=== PATIENT | male | born 1945 | race Two or more races ===

== ENCOUNTER 2016-11-15 22:25 | Inpatient (IN) | payer OTHER ==
[~2016-11-15] VITALS: Ht 167.6 cm; Wt 103.1 kg
[2016-11-15] MEDS ORDERED: IV NS 0.9% 1,000 ML BAG IV ONE (22:30)
[2016-11-15] MEDS ORDERED: LORAZEPAM INJ 2 MG/ML VIAL ONE (22:37)
[2016-11-15 22:52] LABS: ABG BASE EXCESS -2.1 mmol/L; ABG OXYGEN SATURATION 93.8 % (92.0-98.5); ABG PCO2 36.8 mmHg (35.0-45.0); ABG PH 7.401 (7.350-7.450); ABG PO2 75.1 mmHg (75.0-100.0); COHb 1.1 % (0.5-1.5); MetHb 0.6 % (0.0-1.5); O2Hb 92.2 % (94.0-97.0); VENT MODE, BG Room Air
[2016-11-15 22:55] LABS: BASOPHILS # (AUTO) 0.1 /CMM (0.0-0.2); BASOPHILS % (AUTO) 1.2 % (0.0-2.0); EOSINOPHILS # (AUTO) 0.2 /CMM (0.0-0.7); EOSINOPHILS % (AUTO) 2.2 % (0.0-6.0); HEMATOCRIT 30 % (39-51); HEMOGLOBIN 10.2 g/dL (13.5-17.5); LYMPHOCYTES # (AUTO) 1.2 /CMM (0.8-4.8); LYMPHOCYTES % (AUTO) 13.5 % (20.0-44.0); MEAN CORPUSCULAR HEMOGLOBIN 34 PG (26.0-33.0); MEAN CORPUSCULAR HGB CONC 34 g/dl (31.0-36.0); MEAN CORPUSCULAR VOLUME 101 fL (80-96); MONOCYTES # (AUTO) 0.5 /CMM (0.1-1.30); MONOCYTES % (AUTO) 5.8 % (2.0-12.0); NEUTROPHILS # (AUTO) 6.7 /CMM (1.8-8.9); NEUTROPHILS % (AUTO) 77.3 % (43.0-81.0); PLATELET COUNT (AUTO) 90 /CMM (150-450); RDW COEFFICIENT OF VARIATION 22.9 (11.5-15.0); RED BLOOD CELL COUNT(AUTO) 2.99 MIL/uL (4.5-6.0); WHITE BLOOD COUNT (AUTO) 8.7 K/uL (4.3-11.0)
[2016-11-15] MEDS ORDERED: IV NS 0.9% 1,000 ML ONE (22:56)
[2016-11-15] MEDS ORDERED: IV SET PRIMARY 1 EA INFUS.SET MC ONE (22:56)
[2016-11-15] MEDS ORDERED: LORAZEPAM INJ 2 MG/ML VIAL IV ONE ×2 (23:00)
[2016-11-15] MEDS ORDERED: MAGN400O4 PO (23:08)
[2016-11-15] MEDS ORDERED: LACT10SO PO (23:08)
[2016-11-15] MEDS ORDERED: ARGI1POW13 PO (23:08)
[2016-11-15] MEDS ORDERED: ALBU1.257 IH (23:08)
[2016-11-15] MEDS ORDERED: MULT-213 PO (23:08)
[2016-11-15] MEDS ORDERED: SPIR25TA PO (23:08)
[2016-11-15] MEDS ORDERED: ZINC220T PO (23:08)
[2016-11-15] MEDS ORDERED: CRAN3875 PO (23:08)
[2016-11-15] MEDS ORDERED: THIA100T13 PO (23:08)
[2016-11-15] MEDS ORDERED: PROP10TA10 PO (23:08)
[2016-11-15] MEDS ORDERED: NA P133E RC (23:08)
[2016-11-15] MEDS ORDERED: INSU3INS6 SQ (23:08)
[2016-11-15] MEDS ORDERED: TAMS-12 PO (23:08)
[2016-11-15] MEDS ORDERED: PANT40TA2 PO (23:08)
[2016-11-15] MEDS ORDERED: FURO-144 PO (23:08)
[2016-11-15] MEDS ORDERED: ASCO500T9 PO (23:08)
[2016-11-15] MEDS ORDERED: FOLI1TAB16 PO (23:08)
[2016-11-15] MEDS ORDERED: ALLO300T47 PO (23:08)
[2016-11-15] MEDS ORDERED: BISA10SU8 RC (23:08)
[2016-11-15] MEDS ORDERED: IPRA3AMP IH (23:08)
[2016-11-15 23:13] LABS: INR 1.64 (0.87-1.13); PROTHROMBIN TIME 18.1 SECS (9.5-12.7)
[2016-11-15 23:20] LABS: TROPONIN I < 0.017 ng/mL (0.00-0.056)
[2016-11-15 23:24] LABS: SERUM AMMONIA 306 umol/L (11-32)
[2016-11-15 23:26] LABS: ALANINE AMINOTRANSFERASE 63 U/L (12-78); ALBUMIN 2.5 g/dL (3.4-5.0); ALKALINE PHOSPHATASE 267 U/L (46-116); ASPARTATE AMINOTRANSFERASE 97 U/L (15-37); BILIRUBIN,DIRECT 4.2 mg/dL (0.0-0.2); BILIRUBIN,TOTAL 6.6 mg/dL (0.2-1.0); CALCIUM, SERUM 8.4 mg/dL (8.5-10.1); CARBON DIOXIDE 21 mmol/L (21-32); CHLORIDE 104 mmol/L (98-107); CREATININE 2.1 mg/dL (0.6-1.3); GLUCOSE 182 mg/dL (74-106); POTASSIUM 6.2 mmol/L (3.5-5.1); SALICYLATE < 0.2 mg/dL (2.8-20.0); SODIUM SERUM 136 mmol/L (136-145); THYROID STIMULATING HORMONE 15.139 uIU/mL (0.358-3.74); TOTAL PROTEIN, SERUM 8.6 g/dL (6.4-8.2); UREA NITROGEN, BLOOD 44 mg/dL (7-18)
[2016-11-15 23:27] LABS: ACETAMINOPHEN 0 ug/ml (10-30); ALCOHOL, BLOOD < 3 mg/dL (0-0)
[2016-11-15 23:30] LABS: EOSINOPHILS % (MANUAL) 2 % (0-4); LYMPHOCYTES % (MANUAL) 15 % (16-48); MONOCYTES % (MANUAL) 4 % (0-11.0); NEUTROPHILS % (MANUAL) 79 (42-76)
[2016-11-15] MEDS ORDERED: LACTULOSE 10 G/15 ML UDC (PYXIS) GT ONE (23:30)
[2016-11-15] MEDS ORDERED: VANCOMYCIN 1 GM in IV D5W 250 ML IV ONE (23:30)
[2016-11-15] MEDS ORDERED: PIPERACILLIN /TAZOBACTAM 3.375 G in IV D5W 50 ML IV ONE (23:30)
[2016-11-15] MEDS ORDERED: METRONIDAZOLE 500MG/ NS 100ML 100 ML IV ONE (23:30)
[2016-11-15] MEDS ORDERED: NEOMYCIN SULFATE (500MG) 500 MG TABLET NG ONE (23:30)
[2016-11-15] MEDS ORDERED: LEVOFLOXACIN 750 MG /D5W 150ML 150 ML IV ONE (23:30)
[2016-11-15 23:39] LABS: APPEARANCE,URINE CLEAR (CLEAR); BILIRUBIN,URINE 2+ (NEGATIVE); BLOOD, URINE TRACE-INTA Ery/uL (NEGATIVE); COLOR,URINE AMBER (YELLOW); KETONES,URINE TRACE (NEGATIVE); LEUKOCYTE ESTERASE ,URINE NEGATIVE (NEGATIVE); NITRITE, URINE NEGATIVE (NEGATIVE); PROTEIN,URINE TRACE mg/dl (NEGATIVE); UGLUCOSE NEGATIVE (NEGATIVE)
[2016-11-15 23:44] LABS: BACTERIA,URINE None seen /HPF (None Seen); RBC,URINE 0-2 /HPF (0-2); WBC,URINE 0-2 /HPF (0-3)
[2016-11-15 23:45] LABS: SQUAMOUS EPITHELIAL CELL,UR Rare /HPF (None Seen)
[2016-11-15] MEDS ORDERED: PIPERACILLIN /TAZOBACTAM 3.375 G VIAL IV ONE (23:59)
[2016-11-15] MEDS ORDERED: IV SET PRIMARY PUMP SET 1 EA INFUS.SET MC ONE (23:59)
[2016-11-16] VITALS (62 sets, daily range): BP systolic 79–188; BP diastolic 34–102
[2016-11-16] MEDS ORDERED: IV NS 0.9% 1,000 ML BAG IV ONE
[2016-11-16] MEDS ORDERED: LACTULOSE 10 G/15 ML UDC (PYXIS) ONE (00:07)
[2016-11-16] MEDS ORDERED: VANCOMYCIN 1 GM VIAL ONE ×2 (00:16→05:28)
[2016-11-16] MEDS ORDERED: NEOMYCIN SULFATE (500MG) 500 MG TABLET ONE (00:21)
[2016-11-16] MEDS ORDERED: ZINC SULFATE 220 MG CAPSULE ONE (00:29)
[2016-11-16] MEDS ORDERED: ZINC SULFATE 220 MG CAPSULE PO SCH (00:30)
[2016-11-16] MEDS ORDERED: FOLIC ACID 1 MG TABLET ONE ×2 (00:32)
[2016-11-16] MEDS ORDERED: IV NS 0.9% 1,000 ML ONE (00:37)
[2016-11-16] MEDS ORDERED: FOLIC ACID 1 MG TABLET PO ONE (01:00)
[2016-11-16] MEDS ORDERED: METRONIDAZOLE 500MG/ NS 100ML 100 ML IV ONE (01:17)
[2016-11-16 01:38] LABS: CALCIUM, SERUM 8.4 mg/dL (8.5-10.1)
[2016-11-16 01:42] LABS: POTASSIUM 6.2 mmol/L (3.5-5.1)
[2016-11-16] MEDS: CYANOCOBALAMIN 1,000 MCG/ML VIAL IM SCH ×2 (01:51→06:15)
[2016-11-16 03:17] LABS: ABG BASE EXCESS -2.2 mmol/L; ABG OXYGEN SATURATION 96.1 % (92.0-98.5); ABG PCO2 36.3 mmHg (35.0-45.0); ABG PH 7.403 (7.350-7.450); AaDO2 66.8 mmHg; COHb 1.9 % (0.5-1.5); MetHb 0.6 % (0.0-1.5); O2Hb 93.7 % (94.0-97.0); SITE, ABG Right Radial; VENT MODE, BG 2L NC
[2016-11-16] MEDS ORDERED: NOREPINEPHRINE 8 MG in IV D5W 500 ML IV PRN (05:00)
[2016-11-16] MEDS ORDERED: VANCOMYCIN 1 GM in IV D5W 250 ML IV ONE (05:00)
[2016-11-16] MEDS ORDERED: MORPHINE SULFATE INJ 2 MG/ML DISP.SYRIN IV PRN (05:00)
[2016-11-16] MEDS ORDERED: PHYTONADIONE INJ 10 MG in IV D5W 50 ML IV ONE (05:00)
[2016-11-16 05:02] LABS: ABG BASE EXCESS -1.3 mmol/L; ABG PCO2 39.8 mmHg (35.0-45.0); ABG PO2 102.9 mmHg (75.0-100.0); AaDO2 136.5 mmHg; COHb 2.4 % (0.5-1.5); MetHb 0.8 % (0.0-1.5); O2Hb 93.9 % (94.0-97.0); SITE, ABG Right Radial; VENT MODE, BG S/T 12 15/5 40%
[2016-11-16] MEDS ORDERED: LEVOFLOXACIN 750 MG /D5W 150ML 150 ML IV ONE (05:21)
[2016-11-16 05:25] LABS: BASOPHILS # (AUTO) 0.1 /CMM (0.0-0.2); BASOPHILS % (AUTO) 0.7 % (0.0-2.0); EOSINOPHILS # (AUTO) 0.1 /CMM (0.0-0.7); EOSINOPHILS % (AUTO) 1.4 % (0.0-6.0); HEMATOCRIT 26 % (39-51); LYMPHOCYTES # (AUTO) 0.7 /CMM (0.8-4.8); LYMPHOCYTES % (AUTO) 8.6 % (20.0-44.0); MEAN CORPUSCULAR HEMOGLOBIN 35 PG (26.0-33.0); MEAN CORPUSCULAR HGB CONC 35 g/dl (31.0-36.0); MEAN CORPUSCULAR VOLUME 100 fL (80-96); MONOCYTES # (AUTO) 0.6 /CMM (0.1-1.30); MONOCYTES % (AUTO) 7.6 % (2.0-12.0); NEUTROPHILS # (AUTO) 6.5 /CMM (1.8-8.9); NEUTROPHILS % (AUTO) 81.7 % (43.0-81.0); PLATELET COUNT (AUTO) 66 /CMM (150-450); RDW COEFFICIENT OF VARIATION 22.1 (11.5-15.0); RED BLOOD CELL COUNT(AUTO) 2.61 MIL/uL (4.5-6.0); WHITE BLOOD COUNT (AUTO) 7.9 K/uL (4.3-11.0)
[2016-11-16] MEDS ORDERED: IV SET PRIMARY PUMP SET 1 EA INFUS.SET MC ONE ×3 (05:27→20:15)
[2016-11-16] MEDS ORDERED: IV D5/ 0.9% NACL 1,000 ML IV ONE (05:27)
[2016-11-16] MEDS ORDERED: SECONDARY IV SET 1 EA INFUS.SET MC ONE (05:28)
[2016-11-16] MEDS ORDERED: IV D5W 250 ML IV ONE (05:29)
[2016-11-16] MEDS ORDERED: IV D5W 100 ML IV ONE (05:29)
[2016-11-16] MEDS ORDERED: PIPERACILLIN /TAZOBACTAM 2.25 G VIAL IV ONE (05:29)
[2016-11-16] MEDS ORDERED: PHYTONADIONE INJ 10 MG/1 ML AMPUL ONE (05:30)
[2016-11-16] MEDS: IV D5/ 0.9% NACL 1,000 ML IV PRN ×2 (05:41→16:09)
[2016-11-16 05:49] LABS: ALBUMIN 2.1 g/dL (3.4-5.0); BILIRUBIN,TOTAL 7.6 mg/dL (0.2-1.0); CALCIUM, SERUM 7.7 mg/dL (8.5-10.1); EOSINOPHILS % (MANUAL) 1 % (0-4); LYMPHOCYTES % (MANUAL) 12 % (16-48); MAGNESIUM 1.9 mg/dL (1.8-2.4); MONOCYTES % (MANUAL) 6 % (0-11.0); NEUTROPHILS % (MANUAL) 81 (42-76); PHOSPHORUS 3.4 mg/dL (2.5-4.9); TOTAL PROTEIN, SERUM 7.5 g/dL (6.4-8.2)
[2016-11-16 05:54] LABS: POTASSIUM 6.2 mmol/L (3.5-5.1)
[2016-11-16] MEDS ORDERED: PANTOPRAZOLE 40 MG VIAL ONE (05:58)
[2016-11-16] MEDS ORDERED: PIPERACILLIN /TAZOBACTAM 2.25 G in IV D5W 50 ML IV SCH (06:00)
[2016-11-16] MEDS ORDERED: INSULIN REGULAR, HUMAN 100 UNIT/ML 3 ML VIAL IV ONE (06:00)
[2016-11-16] MEDS ORDERED: DEXTROSE 50%-WATER 50 ML DISP.SYRIN IVP ONE (06:00)
[2016-11-16] MEDS: PANTOPRAZOLE 40 MG VIAL IV SCH ×2 (06:02→17:23)
[2016-11-16] MEDS ORDERED: DEXTROSE 50%-WATER 50 ML DISP.SYRIN ONE (06:07)
[2016-11-16] MEDS ORDERED: CYANOCOBALAMIN 1,000 MCG/ML VIAL ONE (06:07)
[2016-11-16] MEDS ORDERED: ETOMIDATE 2 MG/ML VIAL IV ONE (07:00)
[2016-11-16] MEDS ORDERED: ROCURONIUM BROMIDE 50 MG/5 ML IV ONE (07:00)
[2016-11-16] MEDS ORDERED: FEE PK DOSING 1 MIN EA MC ONE (07:25)
[2016-11-16] MEDS ORDERED: LACTULOSE UDC 200 G in SODIUM CHLORIDE IRRIG SOLUTION 400 ML IR SCH (09:00)
[2016-11-16] MEDS: NYSTATIN CREAM 15 GM TUBE TP SCH ×2 (10:16→17:25)
[2016-11-16 10:32] LABS: ABG PCO2 35.1 mmHg (35.0-45.0); PEEP,BG 5 cm H2O; SITE, ABG Right Radial
[2016-11-16 11:12] LABS: ABG BASE EXCESS -1.9 mmol/L; ABG OXYGEN SATURATION 97.8 % (92.0-98.5); ABG PO2 112.1 mmHg (75.0-100.0); AaDO2 204.9 mmHg; COHb 1.5 % (0.5-1.5); MetHb 0.7 % (0.0-1.5); O2Hb 95.6 % (94.0-97.0); VT, ABG 550 mL
[2016-11-16 12:14] LABS: CALCIUM, SERUM 7.6 mg/dL (8.5-10.1); POTASSIUM 5.3 mmol/L (3.5-5.1)
[2016-11-16] MEDS: PROPOFOL 100 ML IV PRN ×2 (13:20→17:40)
[2016-11-16] MEDS ORDERED: LACTULOSE 10 G/15 ML UDC (PYXIS) PO PRN (13:30)
[2016-11-16] MEDS: PIPERACILLIN /TAZOBACTAM 3.375 G in IV D5W 50 ML IV SCH ×2 (14:17→17:23)
[2016-11-16] MEDS: LACTULOSE 10 G/15 ML UDC (PYXIS) PO SCH (17:23)
[2016-11-16] MEDS: NOREPINEPHRINE 8 MG in IV D5W 500 ML IV PRN (20:20)
[2016-11-17] VITALS (98 sets, daily range): BP systolic 85–132; BP diastolic 39–70
[2016-11-17] MEDS: LACTULOSE 10 G/15 ML UDC (PYXIS) PO SCH ×5 (00:05→23:16)
[2016-11-17] MEDS: PIPERACILLIN /TAZOBACTAM 3.375 G in IV D5W 50 ML IV SCH ×5 (00:05→23:16)
[2016-11-17] MEDS: IV D5/ 0.9% NACL 1,000 ML IV PRN (02:50)
[2016-11-17] MEDS: PROPOFOL 100 ML IV PRN ×3 (03:35→19:07)
[2016-11-17 04:38] LABS: BASOPHILS % (AUTO) 0.7 % (0.0-2.0); EOSINOPHILS # (AUTO) 0.2 /CMM (0.0-0.7); EOSINOPHILS % (AUTO) 3.4 % (0.0-6.0); HEMATOCRIT 24 % (39-51); HEMOGLOBIN 8.3 g/dL (13.5-17.5); LYMPHOCYTES # (AUTO) 0.9 /CMM (0.8-4.8); LYMPHOCYTES % (AUTO) 14.4 % (20.0-44.0); MEAN CORPUSCULAR HEMOGLOBIN 35 PG (26.0-33.0); MEAN CORPUSCULAR HGB CONC 35 g/dl (31.0-36.0); MEAN CORPUSCULAR VOLUME 101 fL (80-96); MONOCYTES # (AUTO) 0.6 /CMM (0.1-1.30); MONOCYTES % (AUTO) 9.9 % (2.0-12.0); NEUTROPHILS # (AUTO) 4.7 /CMM (1.8-8.9); NEUTROPHILS % (AUTO) 71.6 % (43.0-81.0); PLATELET COUNT (AUTO) 71 /CMM (150-450); RDW COEFFICIENT OF VARIATION 23.9 (11.5-15.0); RED BLOOD CELL COUNT(AUTO) 2.38 MIL/uL (4.5-6.0); WHITE BLOOD COUNT (AUTO) 6.5 K/uL (4.3-11.0)
[2016-11-17 05:04] LABS: CALCIUM, SERUM 7.6 mg/dL (8.5-10.1); CREATININE 1.9 mg/dL (0.6-1.3); MAGNESIUM 1.9 mg/dL (1.8-2.4); POTASSIUM 5.4 mmol/L (3.5-5.1)
[2016-11-17 05:38] LABS: EOSINOPHILS % (MANUAL) 5 % (0-4); LYMPHOCYTES % (MANUAL) 8 % (16-48); MONOCYTES % (MANUAL) 13 % (0-11.0); NEUTROPHILS % (MANUAL) 74 (42-76)
[2016-11-17] MEDS: PANTOPRAZOLE 40 MG VIAL IV SCH ×2 (05:40→16:55)
[2016-11-17] MEDS ORDERED: VANCOMYCIN 1 GM in IV D5W 250 ML IV SCH (06:00)
[2016-11-17 08:28] LABS: ABG BASE EXCESS -2.5 mmol/L; ABG PCO2 29.3 mmHg (35.0-45.0); ABG PH 7.467 (7.350-7.450); ABG PO2 126.3 mmHg (75.0-100.0); AaDO2 125.2 mmHg; COHb 1.2 % (0.5-1.5); MetHb 1.2 % (0.0-1.5); O2Hb 95.6 % (94.0-97.0); SITE, ABG Right Radial
[2016-11-17] MEDS: FUROSEMIDE 40 MG/4 ML VIAL IV SCH ×2 (09:06→11:04)
[2016-11-17] MEDS: NYSTATIN CREAM 15 GM TUBE TP SCH ×2 (09:08→16:56)
[2016-11-17] MEDS ORDERED: SECONDARY IV SET 1 EA INFUS.SET MC ONE (11:05)
[2016-11-17] MEDS ORDERED: IV SET PRIMARY PUMP SET 1 EA INFUS.SET MC ONE (13:14)
[2016-11-17] MEDS: NOREPINEPHRINE 8 MG in IV D5W 500 ML IV PRN (18:26)
[2016-11-18] VITALS (77 sets, daily range): BP systolic 88–160; BP diastolic 38–88
[2016-11-18] MEDS: VANCOMYCIN 1 GM in IV D5W 250 ML IV SCH ×2 (00:18→17:26)
[2016-11-18] MEDS ORDERED: IV SET PRIMARY PUMP SET 1 EA INFUS.SET MC ONE (02:22)
[2016-11-18] MEDS: PROPOFOL 100 ML IV PRN ×2 (03:11→06:24)
[2016-11-18 04:46] LABS: BASOPHILS % (AUTO) 0.3 % (0.0-2.0); EOSINOPHILS # (AUTO) 0.4 /CMM (0.0-0.7); EOSINOPHILS % (AUTO) 4.6 % (0.0-6.0); HEMATOCRIT 25 % (39-51); HEMOGLOBIN 8.5 g/dL (13.5-17.5); LYMPHOCYTES # (AUTO) 1.1 /CMM (0.8-4.8); LYMPHOCYTES % (AUTO) 12.5 % (20.0-44.0); MEAN CORPUSCULAR HEMOGLOBIN 35 PG (26.0-33.0); MEAN CORPUSCULAR HGB CONC 35 g/dl (31.0-36.0); MEAN CORPUSCULAR VOLUME 100 fL (80-96); MONOCYTES # (AUTO) 0.8 /CMM (0.1-1.30); MONOCYTES % (AUTO) 8.9 % (2.0-12.0); NEUTROPHILS # (AUTO) 6.4 /CMM (1.8-8.9); NEUTROPHILS % (AUTO) 73.7 % (43.0-81.0); PLATELET COUNT (AUTO) 81 /CMM (150-450); RDW COEFFICIENT OF VARIATION 23.5 (11.5-15.0); RED BLOOD CELL COUNT(AUTO) 2.44 MIL/uL (4.5-6.0); WHITE BLOOD COUNT (AUTO) 8.7 K/uL (4.3-11.0)
[2016-11-18 04:59] LABS: CALCIUM, SERUM 7.8 mg/dL (8.5-10.1); CREATININE 1.9 mg/dL (0.6-1.3); MAGNESIUM 1.6 mg/dL (1.8-2.4); PHOSPHORUS 3.7 mg/dL (2.5-4.9); POTASSIUM 4.3 mmol/L (3.5-5.1)
[2016-11-18] MEDS: PIPERACILLIN /TAZOBACTAM 3.375 G in IV D5W 50 ML IV SCH ×3 (05:02→17:26)
[2016-11-18] MEDS: LACTULOSE 10 G/15 ML UDC (PYXIS) PO SCH ×3 (05:02→17:24)
[2016-11-18] MEDS: PANTOPRAZOLE 40 MG VIAL IV SCH ×2 (05:02→17:23)
[2016-11-18 05:49] LABS: EOSINOPHILS % (MANUAL) 7 % (0-4); LYMPHOCYTES % (MANUAL) 15 % (16-48); MONOCYTES % (MANUAL) 5 % (0-11.0); NEUTROPHILS % (MANUAL) 73 (42-76)
[2016-11-18] MEDS: NOREPINEPHRINE 8 MG in IV D5W 500 ML IV PRN ×2 (08:54→18:32)
[2016-11-18] MEDS: NYSTATIN CREAM 15 GM TUBE TP SCH ×2 (09:00→17:00)
[2016-11-18] MEDS ORDERED: DC PROPOFOL WHEN EXTUBATED XX PRN (11:00)
[2016-11-18] MEDS ORDERED: Magnesium 1GM/D5W 100ML PREMIX 100 ML IV SCH (13:00)
[2016-11-18 15:27] LABS: ABG BASE EXCESS 0.8 mmol/L; ABG OXYGEN SATURATION 97.2 % (92.0-98.5); ABG PCO2 37.6 mmHg (35.0-45.0); COHb 1.6 % (0.5-1.5); O2Hb 94.7 % (94.0-97.0); PEEP,BG 5 cm H2O; VT, ABG 550 mL
[2016-11-18] MEDS ORDERED: MUPIROCIN OINT 2% 22 GM TUBE SCH (21:00)
[2016-11-18] MEDS: MUPIROCIN OINT 2% 22 GM TUBE SCH (21:26)
[2016-11-19] VITALS (41 sets, daily range): BP systolic 89–120; BP diastolic 38–70
[2016-11-19] MEDS: PIPERACILLIN /TAZOBACTAM 3.375 G in IV D5W 50 ML IV SCH ×5 (00:10→23:05)
[2016-11-19] MEDS ORDERED: IV NS 0.9% 250 ML IV ONE ×2 (03:52→14:35)
[2016-11-19] MEDS: IV NS 0.9% 250 ML IV PRN (03:59)
[2016-11-19 05:04] LABS: CALCIUM, SERUM 7.8 mg/dL (8.5-10.1); CREATININE 1.7 mg/dL (0.6-1.3); MAGNESIUM 1.9 mg/dL (1.8-2.4); POTASSIUM 4.6 mmol/L (3.5-5.1)
[2016-11-19] MEDS: PANTOPRAZOLE 40 MG VIAL IV SCH ×2 (05:36→17:22)
[2016-11-19 07:50] LABS: BASOPHILS % (AUTO) 0.3 % (0.0-2.0); EOSINOPHILS # (AUTO) 0.3 /CMM (0.0-0.7); EOSINOPHILS % (AUTO) 4.2 % (0.0-6.0); HEMATOCRIT 23 % (39-51); HEMOGLOBIN 7.8 g/dL (13.5-17.5); LYMPHOCYTES # (AUTO) 0.8 /CMM (0.8-4.8); LYMPHOCYTES % (AUTO) 11.4 % (20.0-44.0); MEAN CORPUSCULAR HEMOGLOBIN 35 PG (26.0-33.0); MEAN CORPUSCULAR HGB CONC 34 g/dl (31.0-36.0); MEAN CORPUSCULAR VOLUME 102 fL (80-96); MONOCYTES # (AUTO) 0.5 /CMM (0.1-1.30); MONOCYTES % (AUTO) 7.2 % (2.0-12.0); NEUTROPHILS # (AUTO) 5.6 /CMM (1.8-8.9); NEUTROPHILS % (AUTO) 76.9 % (43.0-81.0); PLATELET COUNT (AUTO) 58 /CMM (150-450); RDW COEFFICIENT OF VARIATION 23.6 (11.5-15.0); RED BLOOD CELL COUNT(AUTO) 2.24 MIL/uL (4.5-6.0); WHITE BLOOD COUNT (AUTO) 7.3 K/uL (4.3-11.0)
[2016-11-19 09:05] LABS: EOSINOPHILS % (MANUAL) 2 % (0-4); LYMPHOCYTES % (MANUAL) 8 % (16-48); MONOCYTES % (MANUAL) 7 % (0-11.0); NEUTROPHILS % (MANUAL) 83 (42-76)
[2016-11-19] MEDS: NYSTATIN CREAM 15 GM TUBE TP SCH ×2 (09:13→17:23)
[2016-11-19] MEDS: MUPIROCIN OINT 2% 22 GM TUBE SCH ×2 (09:13→21:01)
[2016-11-19] MEDS: LACTULOSE 10 G/15 ML UDC (PYXIS) PO SCH ×2 (09:14→17:22)
[2016-11-19] MEDS: VANCOMYCIN 1 GM in IV D5W 250 ML IV SCH (12:34)
[2016-11-19] MEDS ORDERED: BLOOD IV SET 1 EA INFUS.SET MC ONE (14:35)
[2016-11-20] VITALS (7 sets, daily range): BP systolic 105–118; BP diastolic 46–52
[2016-11-20] MEDS: PANTOPRAZOLE 40 MG VIAL IV SCH ×2 (04:08→17:46)
[2016-11-20] MEDS ORDERED: IV SET PRIMARY PUMP SET 1 EA INFUS.SET MC ONE (04:44)
[2016-11-20] MEDS ORDERED: SECONDARY IV SET 1 EA INFUS.SET MC ONE (04:45)
[2016-11-20] MEDS: VANCOMYCIN 1 GM in IV D5W 250 ML IV SCH (05:00)
[2016-11-20] MEDS: PIPERACILLIN /TAZOBACTAM 3.375 G in IV D5W 50 ML IV SCH ×3 (06:24→17:46)
[2016-11-20 06:37] LABS: BASOPHILS % (AUTO) 0.2 % (0.0-2.0); EOSINOPHILS # (AUTO) 0.2 /CMM (0.0-0.7); EOSINOPHILS % (AUTO) 3.6 % (0.0-6.0); HEMATOCRIT 25 % (39-51); HEMOGLOBIN 8.4 g/dL (13.5-17.5); LYMPHOCYTES # (AUTO) 0.5 /CMM (0.8-4.8); LYMPHOCYTES % (AUTO) 11.4 % (20.0-44.0); MEAN CORPUSCULAR HEMOGLOBIN 34 PG (26.0-33.0); MEAN CORPUSCULAR HGB CONC 34 g/dl (31.0-36.0); MEAN CORPUSCULAR VOLUME 101 fL (80-96); MONOCYTES # (AUTO) 0.3 /CMM (0.1-1.30); MONOCYTES % (AUTO) 5.7 % (2.0-12.0); NEUTROPHILS # (AUTO) 3.6 /CMM (1.8-8.9); NEUTROPHILS % (AUTO) 79.1 % (43.0-81.0); PLATELET COUNT (AUTO) 51 /CMM (150-450); RDW COEFFICIENT OF VARIATION 23.4 (11.5-15.0); RED BLOOD CELL COUNT(AUTO) 2.46 MIL/uL (4.5-6.0); WHITE BLOOD COUNT (AUTO) 4.5 K/uL (4.3-11.0)
[2016-11-20 06:51] LABS: CALCIUM, SERUM 8.2 mg/dL (8.5-10.1); CREATININE 1.5 mg/dL (0.6-1.3); PHOSPHORUS 3.6 mg/dL (2.5-4.9); POTASSIUM 4.9 mmol/L (3.5-5.1)
[2016-11-20] MEDS ORDERED: IV NS 0.9% 1,000 ML IV PRN (07:35)
[2016-11-20 08:33] LABS: BAND % (MANUAL) 1 % (0.0-5.0); EOSINOPHILS % (MANUAL) 1 % (0-4); LYMPHOCYTES % (MANUAL) 12 % (16-48); MONOCYTES % (MANUAL) 4 % (0-11.0); NEUTROPHILS % (MANUAL) 82 (42-76)
[2016-11-20] MEDS: LACTULOSE 10 G/15 ML UDC (PYXIS) PO SCH ×2 (08:59→17:46)
[2016-11-20] MEDS: NYSTATIN CREAM 15 GM TUBE TP SCH ×2 (09:01→17:47)
[2016-11-20] MEDS: MUPIROCIN OINT 2% 22 GM TUBE SCH ×2 (09:01→20:49)
[2016-11-20] MEDS: IV NS 0.9% 250 ML IV PRN (13:31)
[2016-11-20] MEDS: HYDROGEL DRESSING 90 GM TUBE TP SCH (20:48)
[2016-11-21] MEDS: PIPERACILLIN /TAZOBACTAM 3.375 G in IV D5W 50 ML IV SCH ×4 (00:27→18:35)
[2016-11-21] MEDS: VANCOMYCIN 1 GM in IV D5W 250 ML IV SCH (01:17)
[2016-11-21] MEDS: PANTOPRAZOLE 40 MG VIAL IV SCH ×2 (05:08→18:36)
[2016-11-21 08:00] VITALS: BP 113/45
[2016-11-21] MEDS: Z GUARD REMEDY 2 OZ OINT TP PRN (08:19)
[2016-11-21] MEDS: FUROSEMIDE 40 MG/4 ML VIAL IV SCH ×2 (08:20→12:32)
[2016-11-21] MEDS: LACTULOSE 10 G/15 ML UDC (PYXIS) PO SCH ×2 (08:20→18:35)
[2016-11-21] MEDS: NYSTATIN CREAM 15 GM TUBE TP SCH ×2 (08:20→17:00)
[2016-11-21] MEDS: MUPIROCIN OINT 2% 22 GM TUBE SCH ×2 (08:21→21:11)
[2016-11-21] MEDS: HYDROGEL DRESSING 90 GM TUBE TP SCH ×2 (08:21→21:11)
[2016-11-21 08:46] LABS: CALCIUM, SERUM 8.3 mg/dL (8.5-10.1); CREATININE 1.4 mg/dL (0.6-1.3); POTASSIUM 4.9 mmol/L (3.5-5.1)
[2016-11-21 16:00] VITALS: BP 122/56
[2016-11-21 20:00] VITALS: BP 116/58
[2016-11-22] MEDS: PIPERACILLIN /TAZOBACTAM 3.375 G in IV D5W 50 ML IV SCH ×2 (00:07→05:20)
[2016-11-22] MEDS: PANTOPRAZOLE 40 MG VIAL IV SCH ×2 (05:20→16:27)
[2016-11-22 07:00] LABS: CREATININE 1.4 mg/dL (0.6-1.3); POTASSIUM 5.6 mmol/L (3.5-5.1)
[2016-11-22 08:00] VITALS: BP 125/64
[2016-11-22] MEDS: LACTULOSE 10 G/15 ML UDC (PYXIS) PO SCH ×2 (08:06→16:27)
[2016-11-22] MEDS: HYDROGEL DRESSING 90 GM TUBE TP SCH ×2 (08:07→21:00)
[2016-11-22] MEDS: NYSTATIN CREAM 15 GM TUBE TP SCH ×2 (08:07→16:39)
[2016-11-22] MEDS: MUPIROCIN OINT 2% 22 GM TUBE SCH ×2 (08:07→21:43)
[2016-11-22] MEDS: FUROSEMIDE 100 MG/10 ML VIAL IV SCH ×3 (09:44→16:30)
[2016-11-22] MEDS ORDERED: FUROSEMIDE 40 MG/4 ML VIAL IV SCH (10:30)
[2016-11-22 16:00] VITALS: BP 113/60
[2016-11-22 20:00] VITALS: BP 117/53
[2016-11-23] MEDS: PANTOPRAZOLE 40 MG VIAL IV SCH (06:02)
[2016-11-23 07:51] LABS: CALCIUM, SERUM 8.2 mg/dL (8.5-10.1); CREATININE 1.5 mg/dL (0.6-1.3); MAGNESIUM 1.6 mg/dL (1.8-2.4); PHOSPHORUS 2.9 mg/dL (2.5-4.9); POTASSIUM 5.1 mmol/L (3.5-5.1)
[2016-11-23 08:00] VITALS: BP 112/55
[2016-11-23 08:09] LABS: BASOPHILS % (AUTO) 0.5 % (0.0-2.0); EOSINOPHILS # (AUTO) 0.1 /CMM (0.0-0.7); EOSINOPHILS % (AUTO) 2.2 % (0.0-6.0); HEMATOCRIT 23 % (39-51); HEMOGLOBIN 7.9 g/dL (13.5-17.5); LYMPHOCYTES # (AUTO) 0.6 /CMM (0.8-4.8); LYMPHOCYTES % (AUTO) 17.3 % (20.0-44.0); MEAN CORPUSCULAR HEMOGLOBIN 34 PG (26.0-33.0); MEAN CORPUSCULAR HGB CONC 34 g/dl (31.0-36.0); MEAN CORPUSCULAR VOLUME 101 fL (80-96); MONOCYTES # (AUTO) 0.2 /CMM (0.1-1.30); MONOCYTES % (AUTO) 7.5 % (2.0-12.0); NEUTROPHILS # (AUTO) 2.3 /CMM (1.8-8.9); NEUTROPHILS % (AUTO) 72.5 % (43.0-81.0); RDW COEFFICIENT OF VARIATION 22.6 (11.5-15.0); RED BLOOD CELL COUNT(AUTO) 2.29 MIL/uL (4.5-6.0); WHITE BLOOD COUNT (AUTO) 3.2 K/uL (4.3-11.0)
[2016-11-23] MEDS: LACTULOSE 10 G/15 ML UDC (PYXIS) PO SCH ×2 (09:06→17:58)
[2016-11-23] MEDS: HYDROGEL DRESSING 90 GM TUBE TP SCH ×2 (09:08→21:39)
[2016-11-23] MEDS: MUPIROCIN OINT 2% 22 GM TUBE SCH ×2 (09:08→21:41)
[2016-11-23] MEDS: NYSTATIN CREAM 15 GM TUBE TP SCH ×2 (09:09→18:04)
[2016-11-23 09:10] LABS: PLATELET COUNT (AUTO) 46 /CMM (150-450)
[2016-11-23 09:38] LABS: BAND % (MANUAL) 6 % (0.0-5.0); BASOPHILS % (MANUAL) 0 % (0.0-2.0); EOSINOPHILS % (MANUAL) 0 % (0-4); LYMPHOCYTES % (MANUAL) 10 % (16-48); MONOCYTES % (MANUAL) 2 % (0-11.0); NEUTROPHILS % (MANUAL) 82 (42-76)
[2016-11-23] MEDS: FUROSEMIDE 100 MG/10 ML VIAL IV SCH ×3 (10:45→17:58)
[2016-11-23] MEDS ORDERED: MAGNESIUM OXIDE 400 MG TABLET PO ONE (12:00)
[2016-11-23] MEDS ORDERED: SECONDARY IV SET 1 EA INFUS.SET MC ONE (12:35)
[2016-11-23] MEDS: Magnesium 1GM/D5W 100ML PREMIX 100 ML IV SCH ×2 (12:44→14:37)
[2016-11-23 16:00] VITALS: BP_SYST 103; BP_SYST 109; BP_DIAS 46
[2016-11-23 20:00] VITALS: BP 111/51
[2016-11-24 08:00] VITALS: BP 105/83
[2016-11-24] MEDS: LACTULOSE 10 G/15 ML UDC (PYXIS) PO SCH ×2 (08:53→17:21)
[2016-11-24] MEDS: MUPIROCIN OINT 2% 22 GM TUBE SCH ×2 (08:56→21:49)
[2016-11-24] MEDS: Z GUARD REMEDY 2 OZ OINT TP PRN (08:57)
[2016-11-24] MEDS: NYSTATIN CREAM 15 GM TUBE TP SCH ×2 (08:57→17:21)
[2016-11-24] MEDS: HYDROGEL DRESSING 90 GM TUBE TP SCH ×2 (08:57→21:49)
[2016-11-24 09:11] LABS: CALCIUM, SERUM 8.2 mg/dL (8.5-10.1); CREATININE 1.5 mg/dL (0.6-1.3); MAGNESIUM 1.9 mg/dL (1.8-2.4); PHOSPHORUS 3.2 mg/dL (2.5-4.9); POTASSIUM 5.1 mmol/L (3.5-5.1)
[2016-11-24] MEDS ORDERED: METOLAZONE 2.5 MG TABLET PO ONE (10:00)
[2016-11-24] MEDS: FUROSEMIDE 40 MG/4 ML VIAL IV SCH ×2 (11:03→17:21)
[2016-11-24 16:00] VITALS: BP 104/43
[2016-11-24] MEDS: IV NS 0.9% 250 ML IV PRN (17:21)
[2016-11-24 20:00] VITALS: BP 104/49
[2016-11-25] MEDS ORDERED: MORPHINE SULFATE INJ 2 MG/ML DISP.SYRIN ONE (00:49)
[2016-11-25] MEDS: MORPHINE SULFATE INJ 2 MG/ML DISP.SYRIN IV PRN ×2 (00:55→14:06)
[2016-11-25] MEDS: FUROSEMIDE 40 MG/4 ML VIAL IV SCH (03:19)
[2016-11-25 07:22] LABS: BASOPHILS % (AUTO) 0.1 % (0.0-2.0); EOSINOPHILS # (AUTO) 0.1 /CMM (0.0-0.7); EOSINOPHILS % (AUTO) 1.8 % (0.0-6.0); HEMATOCRIT 24 % (39-51); HEMOGLOBIN 8.4 g/dL (13.5-17.5); LYMPHOCYTES # (AUTO) 0.5 /CMM (0.8-4.8); LYMPHOCYTES % (AUTO) 11.1 % (20.0-44.0); MEAN CORPUSCULAR HEMOGLOBIN 36 PG (26.0-33.0); MEAN CORPUSCULAR HGB CONC 35 g/dl (31.0-36.0); MEAN CORPUSCULAR VOLUME 101 fL (80-96); MONOCYTES # (AUTO) 0.3 /CMM (0.1-1.30); MONOCYTES % (AUTO) 5.7 % (2.0-12.0); NEUTROPHILS % (AUTO) 81.3 % (43.0-81.0); RDW COEFFICIENT OF VARIATION 22.5 (11.5-15.0); RED BLOOD CELL COUNT(AUTO) 2.36 MIL/uL (4.5-6.0); WHITE BLOOD COUNT (AUTO) 4.9 K/uL (4.3-11.0)
[2016-11-25 07:31] LABS: PLATELET COUNT (AUTO) 47 /CMM (150-450)
[2016-11-25 07:32] LABS: ALBUMIN 1.5 g/dL (3.4-5.0); BILIRUBIN,TOTAL 6.2 mg/dL (0.2-1.0); CALCIUM, SERUM 8.5 mg/dL (8.5-10.1); CREATININE 1.6 mg/dL (0.6-1.3); MAGNESIUM 1.7 mg/dL (1.8-2.4); PHOSPHORUS 3.4 mg/dL (2.5-4.9); POTASSIUM 4.5 mmol/L (3.5-5.1); TOTAL PROTEIN, SERUM 7.3 g/dL (6.4-8.2)
[2016-11-25 07:57] LABS: BAND % (MANUAL) 3 % (0.0-5.0); LYMPHOCYTES % (MANUAL) 11 % (16-48); MONOCYTES % (MANUAL) 1 % (0-11.0); NEUTROPHILS % (MANUAL) 85 (42-76)
[2016-11-25 08:00] VITALS: BP 116/51
[2016-11-25] MEDS: HYDROGEL DRESSING 90 GM TUBE TP SCH ×2 (09:05→21:39)
[2016-11-25] MEDS: LACTULOSE 10 G/15 ML UDC (PYXIS) PO SCH ×2 (09:05→17:00)
[2016-11-25] MEDS: NYSTATIN CREAM 15 GM TUBE TP SCH ×2 (09:05→17:00)
[2016-11-25] MEDS: MUPIROCIN OINT 2% 22 GM TUBE SCH ×2 (09:05→21:39)
[2016-11-25] MEDS: SPIRONOLACTONE 25 MG TABLET PO SCH (11:30)
[2016-11-25] MEDS ORDERED: SECONDARY IV SET 1 EA INFUS.SET MC ONE (12:31)
[2016-11-25] MEDS: Magnesium 1GM/D5W 100ML PREMIX 100 ML IV SCH ×2 (12:45→13:55)
[2016-11-25 16:00] VITALS: BP 120/54
[2016-11-25 20:00] VITALS: BP 118/54
[2016-11-26 07:28] LABS: BASOPHILS % (AUTO) 0.1 % (0.0-2.0); EOSINOPHILS % (AUTO) 0.4 % (0.0-6.0); HEMATOCRIT 23 % (39-51); LYMPHOCYTES # (AUTO) 0.6 /CMM (0.8-4.8); LYMPHOCYTES % (AUTO) 8.7 % (20.0-44.0); MEAN CORPUSCULAR HEMOGLOBIN 36 PG (26.0-33.0); MEAN CORPUSCULAR HGB CONC 35 g/dl (31.0-36.0); MEAN CORPUSCULAR VOLUME 102 fL (80-96); MONOCYTES # (AUTO) 0.4 /CMM (0.1-1.30); MONOCYTES % (AUTO) 5.7 % (2.0-12.0); NEUTROPHILS % (AUTO) 85.1 % (43.0-81.0); RDW COEFFICIENT OF VARIATION 22.4 (11.5-15.0); RED BLOOD CELL COUNT(AUTO) 2.23 MIL/uL (4.5-6.0)
[2016-11-26 07:33] LABS: PLATELET COUNT (AUTO) 46 /CMM (150-450)
[2016-11-26 07:59] LABS: CALCIUM, SERUM 8.4 mg/dL (8.5-10.1); CREATININE 1.8 mg/dL (0.6-1.3); POTASSIUM 4.8 mmol/L (3.5-5.1)
[2016-11-26 08:00] VITALS: BP 122/54
[2016-11-26 08:26] LABS: EOSINOPHILS % (MANUAL) 1 % (0-4); LYMPHOCYTES % (MANUAL) 5 % (16-48); MONOCYTES % (MANUAL) 2 % (0-11.0); NEUTROPHILS % (MANUAL) 92 (42-76)
[2016-11-26] MEDS: LACTULOSE 10 G/15 ML UDC (PYXIS) PO SCH ×2 (09:19→17:04)
[2016-11-26] MEDS: SPIRONOLACTONE 25 MG TABLET PO SCH (09:19)
[2016-11-26] MEDS: NYSTATIN CREAM 15 GM TUBE TP SCH ×2 (09:20→17:04)
[2016-11-26] MEDS: MUPIROCIN OINT 2% 22 GM TUBE SCH ×2 (09:20→21:02)
[2016-11-26] MEDS: HYDROGEL DRESSING 90 GM TUBE TP SCH ×2 (09:20→21:03)
[2016-11-26 16:00] VITALS: BP 118/52
[2016-11-26 20:34] VITALS: BP 117/50
[2016-11-27] VITALS (12 sets, daily range): BP systolic 101–117; BP diastolic 46–55
[2016-11-27 06:35] LABS: BASOPHILS % (AUTO) 0.3 % (0.0-2.0); EOSINOPHILS # (AUTO) 0.1 /CMM (0.0-0.7); EOSINOPHILS % (AUTO) 1.3 % (0.0-6.0); HEMATOCRIT 22 % (39-51); HEMOGLOBIN 7.7 g/dL (13.5-17.5); LYMPHOCYTES # (AUTO) 0.6 /CMM (0.8-4.8); LYMPHOCYTES % (AUTO) 9.6 % (20.0-44.0); MEAN CORPUSCULAR HEMOGLOBIN 36 PG (26.0-33.0); MEAN CORPUSCULAR HGB CONC 35 g/dl (31.0-36.0); MEAN CORPUSCULAR VOLUME 102 fL (80-96); MONOCYTES # (AUTO) 0.3 /CMM (0.1-1.30); MONOCYTES % (AUTO) 4.6 % (2.0-12.0); NEUTROPHILS # (AUTO) 5.3 /CMM (1.8-8.9); NEUTROPHILS % (AUTO) 84.2 % (43.0-81.0); RDW COEFFICIENT OF VARIATION 22.5 (11.5-15.0); RED BLOOD CELL COUNT(AUTO) 2.16 MIL/uL (4.5-6.0); WHITE BLOOD COUNT (AUTO) 6.3 K/uL (4.3-11.0)
[2016-11-27 07:12] LABS: CREATININE 1.7 mg/dL (0.6-1.3); POTASSIUM 4.4 mmol/L (3.5-5.1)
[2016-11-27 07:42] LABS: PLATELET COUNT (AUTO) 46 /CMM (150-450)
[2016-11-27 08:24] LABS: BAND % (MANUAL) 2 % (0.0-5.0); LYMPHOCYTES % (MANUAL) 8 % (16-48); MONOCYTES % (MANUAL) 8 % (0-11.0); NEUTROPHILS % (MANUAL) 82 (42-76)
[2016-11-27] MEDS: SPIRONOLACTONE 25 MG TABLET PO SCH (08:36)
[2016-11-27] MEDS: MUPIROCIN OINT 2% 22 GM TUBE SCH ×2 (08:36→21:20)
[2016-11-27] MEDS: LACTULOSE 10 G/15 ML UDC (PYXIS) PO SCH ×2 (08:36→17:16)
[2016-11-27] MEDS: NYSTATIN CREAM 15 GM TUBE TP SCH ×2 (08:37→17:16)
[2016-11-27] MEDS: HYDROGEL DRESSING 90 GM TUBE TP SCH ×2 (08:37→21:20)
[2016-11-27] MEDS ORDERED: IV NS 0.9% 250 ML IV ONE (16:10)
[2016-11-28 06:55] LABS: BASOPHILS % (AUTO) 0.1 % (0.0-2.0); EOSINOPHILS # (AUTO) 0.1 /CMM (0.0-0.7); EOSINOPHILS % (AUTO) 1.4 % (0.0-6.0); HEMATOCRIT 25 % (39-51); HEMOGLOBIN 8.4 g/dL (13.5-17.5); LYMPHOCYTES # (AUTO) 0.7 /CMM (0.8-4.8); LYMPHOCYTES % (AUTO) 11.5 % (20.0-44.0); MEAN CORPUSCULAR HEMOGLOBIN 35 PG (26.0-33.0); MEAN CORPUSCULAR HGB CONC 34 g/dl (31.0-36.0); MEAN CORPUSCULAR VOLUME 101 fL (80-96); MONOCYTES # (AUTO) 0.4 /CMM (0.1-1.30); MONOCYTES % (AUTO) 6.9 % (2.0-12.0); NEUTROPHILS % (AUTO) 80.1 % (43.0-81.0); PLATELET COUNT (AUTO) 53 /CMM (150-450); RDW COEFFICIENT OF VARIATION 22.2 (11.5-15.0); RED BLOOD CELL COUNT(AUTO) 2.43 MIL/uL (4.5-6.0); WHITE BLOOD COUNT (AUTO) 6.2 K/uL (4.3-11.0)
[2016-11-28 07:33] LABS: CALCIUM, SERUM 8.3 mg/dL (8.5-10.1); CREATININE 1.6 mg/dL (0.6-1.3); POTASSIUM 4.2 mmol/L (3.5-5.1)
[2016-11-28 08:00] VITALS: BP 120/55
[2016-11-28 08:08] LABS: BAND % (MANUAL) 2 % (0.0-5.0); EOSINOPHILS % (MANUAL) 2 % (0-4); LYMPHOCYTES % (MANUAL) 7 % (16-48); MONOCYTES % (MANUAL) 9 % (0-11.0); NEUTROPHILS % (MANUAL) 80 (42-76)
[2016-11-28] MEDS: MUPIROCIN OINT 2% 22 GM TUBE SCH ×2 (08:19→20:28)
[2016-11-28] MEDS: LACTULOSE 10 G/15 ML UDC (PYXIS) PO SCH ×2 (08:19→16:44)
[2016-11-28] MEDS: SPIRONOLACTONE 25 MG TABLET PO SCH (08:19)
[2016-11-28] MEDS: NYSTATIN CREAM 15 GM TUBE TP SCH ×2 (08:20→16:47)
[2016-11-28] MEDS: HYDROGEL DRESSING 90 GM TUBE TP SCH ×2 (08:20→20:28)
[2016-11-28 09:49] LABS: ALBUMIN 1.5 g/dL (3.4-5.0); CALCIUM, SERUM 8.4 mg/dL (8.5-10.1); CREATININE 1.6 mg/dL (0.6-1.3); POTASSIUM 4.3 mmol/L (3.5-5.1); TOTAL PROTEIN, SERUM 7.4 g/dL (6.4-8.2)
[2016-11-28 16:00] VITALS: BP 115/62
[2016-11-28 20:00] VITALS: BP 128/59
[2016-11-29] MEDS: MORPHINE SULFATE INJ 2 MG/ML DISP.SYRIN IV PRN ×2 (00:12→20:08)
[2016-11-29] MEDS ORDERED: IV NS 0.9% 1,000 ML ONE (00:39)
[2016-11-29] MEDS ORDERED: IV SET PRIMARY PUMP SET 1 EA INFUS.SET MC ONE ×3 (00:39→23:20)
[2016-11-29] MEDS ORDERED: IV NS 0.9% 1,000 ML IV SCH (01:00)
[2016-11-29 06:59] LABS: BASOPHILS % (AUTO) 0.1 % (0.0-2.0); EOSINOPHILS % (AUTO) 0.1 % (0.0-6.0); HEMATOCRIT 25 % (39-51); HEMOGLOBIN 8.5 g/dL (13.5-17.5); LYMPHOCYTES # (AUTO) 0.6 /CMM (0.8-4.8); LYMPHOCYTES % (AUTO) 5.5 % (20.0-44.0); MEAN CORPUSCULAR HEMOGLOBIN 35 PG (26.0-33.0); MEAN CORPUSCULAR HGB CONC 35 g/dl (31.0-36.0); MEAN CORPUSCULAR VOLUME 102 fL (80-96); MONOCYTES # (AUTO) 0.5 /CMM (0.1-1.30); MONOCYTES % (AUTO) 4.3 % (2.0-12.0); NEUTROPHILS # (AUTO) 9.6 /CMM (1.8-8.9); PLATELET COUNT (AUTO) 71 /CMM (150-450); RDW COEFFICIENT OF VARIATION 21.9 (11.5-15.0); RED BLOOD CELL COUNT(AUTO) 2.41 MIL/uL (4.5-6.0); WHITE BLOOD COUNT (AUTO) 10.7 K/uL (4.3-11.0)
[2016-11-29] MEDS ORDERED: ACETAMINOPHEN 650 MG/SUPP.RECT RC ONE (07:05)
[2016-11-29 07:16] LABS: CALCIUM, SERUM 8.2 mg/dL (8.5-10.1); POTASSIUM 4.7 mmol/L (3.5-5.1)
[2016-11-29 07:24] LABS: INR 1.98 (0.87-1.13); PROTHROMBIN TIME 22.1 SECS (9.5-12.7)
[2016-11-29] MEDS ORDERED: ACETAMINOPHEN 650 MG/SUPP.RECT RC PRN (07:30)
[2016-11-29 08:00] VITALS: BP 110/44
[2016-11-29] MEDS ORDERED: SECONDARY IV SET 1 EA INFUS.SET MC ONE (10:02)
[2016-11-29] MEDS: LACTULOSE 10 G/15 ML UDC (PYXIS) PO SCH ×2 (10:09→18:48)
[2016-11-29] MEDS: SPIRONOLACTONE 25 MG TABLET PO SCH (10:09)
[2016-11-29] MEDS: NYSTATIN CREAM 15 GM TUBE TP SCH ×2 (10:10→18:49)
[2016-11-29] MEDS: HYDROGEL DRESSING 90 GM TUBE TP SCH ×2 (10:11→20:09)
[2016-11-29] MEDS: MUPIROCIN OINT 2% 22 GM TUBE SCH ×2 (10:12→20:09)
[2016-11-29 10:33] LABS: BAND % (MANUAL) 6 % (0.0-5.0); LYMPHOCYTES % (MANUAL) 4 % (16-48); MONOCYTES % (MANUAL) 2 % (0-11.0); NEUTROPHILS % (MANUAL) 88 (42-76)
[2016-11-29] MEDS: ALBUMIN 25% 25 GM in PREMIX 1 EA IV SCH ×3 (11:43→23:15)
[2016-11-29] MEDS ORDERED: ANESTHESIA TRAY IN PYXIS 1 EA TRAY MC ONE (13:12)
[2016-11-29] MEDS: IV NS 0.9% 1,000 ML IV PRN (15:30)
[2016-11-29 16:00] VITALS: BP 102/41
[2016-11-29 18:33] LABS: ALBUMIN 1.5 g/dL (3.4-5.0)
[2016-11-29] MEDS ORDERED: IV NS 0.9% 1,000 ML IV PRN (19:00)
[2016-11-29 20:00] VITALS: BP_SYST 94; BP_SYST 95; BP_DIAS 41
[2016-11-29] MEDS ORDERED: IV SET PRIMARY 1 EA INFUS.SET MC ONE ×2 (20:01→23:07)
[2016-11-30] VITALS (41 sets, daily range): BP systolic 51–143; BP diastolic 20–95
[2016-11-30] MEDS: MORPHINE SULFATE INJ 2 MG/ML DISP.SYRIN IV PRN (02:34)
[2016-11-30] MEDS: ALBUMIN 25% 25 GM in PREMIX 1 EA IV SCH (05:17)
[2016-11-30] MEDS: IV NS 0.9% 1,000 ML IV PRN ×2 (05:17→19:38)
[2016-11-30 07:12] LABS: BASOPHILS % (AUTO) 0.1 % (0.0-2.0); EOSINOPHILS % (AUTO) 0.5 % (0.0-6.0); HEMATOCRIT 23 % (39-51); LYMPHOCYTES # (AUTO) 0.6 /CMM (0.8-4.8); LYMPHOCYTES % (AUTO) 11.6 % (20.0-44.0); MEAN CORPUSCULAR HEMOGLOBIN 35 PG (26.0-33.0); MEAN CORPUSCULAR HGB CONC 34 g/dl (31.0-36.0); MEAN CORPUSCULAR VOLUME 103 fL (80-96); MONOCYTES # (AUTO) 0.3 /CMM (0.1-1.30); MONOCYTES % (AUTO) 6.2 % (2.0-12.0); NEUTROPHILS # (AUTO) 3.9 /CMM (1.8-8.9); NEUTROPHILS % (AUTO) 81.6 % (43.0-81.0); PLATELET COUNT (AUTO) 55 /CMM (150-450); RDW COEFFICIENT OF VARIATION 23.1 (11.5-15.0); RED BLOOD CELL COUNT(AUTO) 2.26 MIL/uL (4.5-6.0); WHITE BLOOD COUNT (AUTO) 4.8 K/uL (4.3-11.0)
[2016-11-30 08:16] LABS: BAND % (MANUAL) 20 % (0.0-5.0); EOSINOPHILS % (MANUAL) 1 % (0-4); LYMPHOCYTES % (MANUAL) 11 % (16-48); METAMYELOCYTES % 3 % (0-0); MONOCYTES % (MANUAL) 3 % (0-11.0); MYELOCYTES % 2 % (0-0); NEUTROPHILS % (MANUAL) 60 (42-76)
[2016-11-30 08:22] LABS: CALCIUM, SERUM 8.2 mg/dL (8.5-10.1); CREATININE 3.1 mg/dL (0.6-1.3); POTASSIUM 5.3 mmol/L (3.5-5.1)
[2016-11-30] MEDS: SPIRONOLACTONE 25 MG TABLET PO SCH (09:00)
[2016-11-30] MEDS: HYDROGEL DRESSING 90 GM TUBE TP SCH ×2 (09:03→21:00)
[2016-11-30] MEDS: LACTULOSE 10 G/15 ML UDC (PYXIS) PO SCH ×2 (09:03→17:00)
[2016-11-30] MEDS: NYSTATIN CREAM 15 GM TUBE TP SCH ×2 (09:03→18:07)
[2016-11-30] MEDS: MUPIROCIN OINT 2% 22 GM TUBE SCH ×2 (09:04→21:00)
[2016-11-30] MEDS: IV NS 0.9% 1,000 ML BAG IV PRN ×2 (15:06→18:04)
[2016-11-30] MEDS ORDERED: IV NS 0.9% 2,000 ML ONE (17:27)
[2016-11-30] MEDS ORDERED: IV SET PRIMARY PUMP SET 1 EA INFUS.SET MC ONE (17:27)
[2016-11-30] MEDS ORDERED: SECONDARY IV SET 1 EA INFUS.SET MC ONE (17:27)
[2016-11-30] MEDS: NOREPINEPHRINE 8 MG in IV D5W 500 ML IV PRN (17:45)
[2016-11-30 19:30] LABS: BASOPHILS % (AUTO) 0.4 % (0.0-2.0); EOSINOPHILS % (AUTO) 0.9 % (0.0-6.0); HEMATOCRIT 21 % (39-51); LYMPHOCYTES # (AUTO) 0.4 /CMM (0.8-4.8); MEAN CORPUSCULAR HEMOGLOBIN 35 PG (26.0-33.0); MEAN CORPUSCULAR HGB CONC 33 g/dl (31.0-36.0); MEAN CORPUSCULAR VOLUME 104 fL (80-96); MONOCYTES # (AUTO) 0.1 /CMM (0.1-1.30); MONOCYTES % (AUTO) 2.2 % (2.0-12.0); NEUTROPHILS # (AUTO) 2.6 /CMM (1.8-8.9); NEUTROPHILS % (AUTO) 84.5 % (43.0-81.0); PLATELET COUNT (AUTO) 58 /CMM (150-450); RDW COEFFICIENT OF VARIATION 23.3 (11.5-15.0)
[2016-11-30 19:46] LABS: RED BLOOD CELL COUNT(AUTO) 1.99 MIL/uL (4.5-6.0)
[2016-11-30 19:48] LABS: BILIRUBIN,DIRECT 8.1 mg/dL (0.0-0.2); BILIRUBIN,TOTAL 10.2 mg/dL (0.2-1.0); HEMOGLOBIN 6.9 g/dL (13.5-17.5)
[2016-11-30 19:57] LABS: BAND % (MANUAL) 20 % (0.0-5.0); LYMPHOCYTES % (MANUAL) 20 % (16-48); METAMYELOCYTES % 2 % (0-0); MONOCYTES % (MANUAL) 14 % (0-11.0); MYELOCYTES % 2 % (0-0); NEUTROPHILS % (MANUAL) 42 (42-76)
[2016-11-30 21:06] LABS: HEMOGLOBIN 7.9 g/dL (13.5-17.5)
[2016-11-30] MEDS ORDERED: NOREPINEPHRINE 4 MG/4 ML AMPUL IV ONE (23:28)
[2016-11-30] MEDS ORDERED: IV D5W 1,000 ML IV ONE (23:47)
[2016-11-30] MEDS ORDERED: DEXTROSE 50%-WATER 50 ML DISP.SYRIN ONE (23:56)
[2016-11-30 23:58] LABS: ABG BASE EXCESS -12.4 mmol/L; ABG OXYGEN SATURATION 96.9 % (92.0-98.5); ABG PCO2 31.7 mmHg (35.0-45.0); ABG PH 7.253 (7.350-7.450); ABG PO2 112.4 mmHg (75.0-100.0); AaDO2 424.7 mmHg; COHb 1.6 % (0.5-1.5); MetHb 0.7 % (0.0-1.5); O2Hb 94.7 % (94.0-97.0); SITE, ABG Right Radial; VENT MODE, BG NRB
[2016-12-01] VITALS (78 sets, daily range): BP systolic 26–152; BP diastolic 15–84
[2016-12-01] MEDS ORDERED: IV NS 0.9% 1,000 ML IV PRN (00:04)
[2016-12-01] MEDS ORDERED: DEXTROSE 50%-WATER 50 ML DISP.SYRIN IVP ONE (00:05)
[2016-12-01] MEDS ORDERED: IV SET PRIMARY PUMP SET 1 EA INFUS.SET MC ONE ×4 (00:16→09:37)
[2016-12-01] MEDS ORDERED: IV D5W 250 ML IV ONE ×2 (00:16→04:49)
[2016-12-01] MEDS ORDERED: PHENYLEPHRINE 10 MG/ML VIAL ONE ×2 (00:21→04:49)
[2016-12-01] MEDS ORDERED: IV D5/ 0.9% NACL 1,000 ML IV ONE (00:33)
[2016-12-01] MEDS: PHENYLEPHRINE 80 MG in IV D5W 250 ML IV PRN ×3 (00:36→07:36)
[2016-12-01] MEDS ORDERED: DEXTROSE 50%-WATER 50 ML DISP.SYRIN ONE (00:56)
[2016-12-01] MEDS ORDERED: FUROSEMIDE 40 MG/4 ML VIAL IV ONE (01:00)
[2016-12-01] MEDS ORDERED: IV D5/ 0.9% NACL 1,000 ML IV PRN (01:00)
[2016-12-01] MEDS ORDERED: IV 10% DEXTROSE 1,000 ML IV ONE (01:15)
[2016-12-01] MEDS ORDERED: Sodium Chloride 154 MEQ in IV 10% DEXTROSE 1,000 ML IV PRN (01:30)
[2016-12-01] MEDS ORDERED: IV 10% DEXTROSE 1,000 ML IV PRN (01:30)
[2016-12-01] MEDS ORDERED: DEXTROSE 50%-WATER 50 ML DISP.SYRIN IVP PRN (01:30)
[2016-12-01] MEDS: NOREPINEPHRINE 8 MG in IV D5W 500 ML IV PRN ×2 (01:41→04:19)
[2016-12-01 02:10] LABS: HEMOGLOBIN 8.3 g/dL (13.5-17.5)
[2016-12-01] MEDS ORDERED: IV NS 0.9% 1,000 ML ONE (02:14)
[2016-12-01] MEDS ORDERED: IV NS 0.9% 1,000 ML IV ONE (02:14)
[2016-12-01] MEDS ORDERED: IV SET PRIMARY 1 EA INFUS.SET MC ONE (02:14)
[2016-12-01] MEDS: BLOOD SUGAR DIAGNOSTIC 1 EACH STRIP IN SCH ×8 (02:35→09:21)
[2016-12-01 03:20] LABS: ABG BASE EXCESS -20.7 mmol/L; ABG PCO2 30.7 mmHg (35.0-45.0); ABG PH 7.059 (7.350-7.450); ABG PO2 115.4 mmHg (75.0-100.0); AaDO2 422.8 mmHg; SITE, ABG Right Radial; VENT MODE, BG NRB
[2016-12-01] MEDS ORDERED: VASOPRESSIN INJ 50 UNIT in IV D5W 497.5 ML IV PRN (03:30)
[2016-12-01] MEDS ORDERED: VASOPRESSIN INJ 20 UNIT/ML VIAL ONE (03:33)
[2016-12-01] MEDS ORDERED: IV D5W 1,000 ML IV ONE (03:34)
[2016-12-01] MEDS ORDERED: IV D5W 500 ML IV ONE (03:34)
[2016-12-01] MEDS ORDERED: ROCURONIUM BROMIDE 50 MG/5 ML IV ONE (03:35)
[2016-12-01] MEDS ORDERED: ETOMIDATE 2 MG/ML VIAL IV ONE (03:35)
[2016-12-01] MEDS ORDERED: LIDOCAINE HCL/PF 1% 30 ML SDV ONE (03:42)
[2016-12-01] MEDS ORDERED: SODIUM BICARBONATE SYR 50 MEQ/50 ML DISP.SYRIN ONE ×2 (03:50)
[2016-12-01] MEDS ORDERED: LIDOCAINE 1% INJ 50 ML MDV IJ ONE (04:00)
[2016-12-01] MEDS ORDERED: Sodium Bicarbonate 150 MEQ in IV D5W 1,000 ML IV PRN (04:00)
[2016-12-01] MEDS: FENTANYL PF 100MCG/2ML AMPUL IV ONE ×2 (04:00→04:11)
[2016-12-01] MEDS ORDERED: PROPOFOL 100 ML IV PRN (04:00)
[2016-12-01] MEDS ORDERED: NOREPINEPHRINE 4 MG/4 ML AMPUL IV ONE (04:01)
[2016-12-01 05:16] LABS: ABG BASE EXCESS -22.9 mmol/L; ABG OXYGEN SATURATION 80.7 % (92.0-98.5); ABG PCO2 44.2 mmHg (35.0-45.0); ABG PH 6.911 (7.350-7.450); ABG PO2 69.7 mmHg (75.0-100.0); COHb 0.7 % (0.5-1.5); MetHb 0.8 % (0.0-1.5); O2Hb 79.5 % (94.0-97.0); VENT MODE, BG A/C; VT, ABG 550 mL
[2016-12-01 06:45] LABS: BASOPHILS % (AUTO) 0.2 % (0.0-2.0); EOSINOPHILS # (AUTO) 0.2 /CMM (0.0-0.7); EOSINOPHILS % (AUTO) 3.6 % (0.0-6.0); HEMATOCRIT 25 % (39-51); HEMOGLOBIN 8.1 g/dL (13.5-17.5); LYMPHOCYTES # (AUTO) 1.9 /CMM (0.8-4.8); LYMPHOCYTES % (AUTO) 38.8 % (20.0-44.0); MEAN CORPUSCULAR HEMOGLOBIN 35 PG (26.0-33.0); MEAN CORPUSCULAR HGB CONC 33 g/dl (31.0-36.0); MEAN CORPUSCULAR VOLUME 108 fL (80-96); MONOCYTES % (AUTO) 0.9 % (2.0-12.0); NEUTROPHILS # (AUTO) 2.8 /CMM (1.8-8.9); NEUTROPHILS % (AUTO) 56.5 % (43.0-81.0); PLATELET COUNT (AUTO) 118 /CMM (150-450); RDW COEFFICIENT OF VARIATION 22.4 (11.5-15.0)
[2016-12-01 06:51] LABS: CALCIUM, SERUM 6.9 mg/dL (8.5-10.1); CREATININE 4.2 mg/dL (0.6-1.3); PHOSPHORUS 6.2 mg/dL (2.5-4.9); POTASSIUM 5.7 mmol/L (3.5-5.1)
[2016-12-01] MEDS ORDERED: VANCOMYCIN 1 GM in IV D5W 250 ML IV SCH ×2 (07:00→09:00)
[2016-12-01] MEDS ORDERED: NOREPINEPHRINE 8 MG in IV D5W 500 ML IV PRN (07:00)
[2016-12-01] MEDS ORDERED: LEVOFLOXACIN 750 MG /D5W 150ML 750 MG in PREMIX 1 EA IV SCH ×2 (07:00→08:30)
[2016-12-01] MEDS ORDERED: NOREPINEPHRINE 16 MG in IV D5W 500 ML IV PRN (07:30)
[2016-12-01] MEDS ORDERED: FEE PK DOSING 1 MIN EA MC ONE (08:48)
[2016-12-01] MEDS ORDERED: VANCOMYCIN 1.25 GM in IV D5W 500 ML IV SCH (09:00)
[2016-12-01] MEDS: LACTULOSE 10 G/15 ML UDC (PYXIS) PO SCH (09:00)
[2016-12-01] MEDS ORDERED: SECONDARY IV SET 1 EA INFUS.SET MC ONE (09:02)
[2016-12-01] MEDS ORDERED: OCTREOTIDE 50 MCG in IV NS 0.9% 50 ML IV STA (09:09)
[2016-12-01] MEDS: MUPIROCIN OINT 2% 22 GM TUBE SCH (09:12)
[2016-12-01] MEDS: NYSTATIN CREAM 15 GM TUBE TP SCH (09:14)
[2016-12-01] MEDS: HYDROGEL DRESSING 90 GM TUBE TP SCH (09:14)
[2016-12-01] MEDS ORDERED: OCTREOTIDE 1,250 MCG in IV NS 0.9% 247.5 ML IV PRN (09:30)
[2016-12-01] MEDS ORDERED: Sodium Bicarbonate 100 MEQ in IV D5 / 0.2% NACL 1,000 ML IV PRN (10:00)
[2016-12-01] MEDS ORDERED: EPINEPHRINE (1:10,000) SYRINGE 1 MG/10 ML DISP.SYRIN IVP ONE ×2 (10:29→10:30)
[2016-12-01] MEDS ORDERED: SODIUM BICARBONATE SYR 50 MEQ/50 ML DISP.SYRIN IV ONE (10:30)
[2016-12-01] MEDS ORDERED: CALCIUM CHLORIDE 1,000 MG/10 ML DISP.SYRIN IV ONE (10:30)
[2016-12-01] MEDS ORDERED: FEE EMEERGENCY 1 MIN EA MC ONE (10:30)
[2016-12-01 10:58] LABS: BAND % (MANUAL) 19 % (0.0-5.0); EOSINOPHILS % (MANUAL) 4 % (0-4); LYMPHOCYTES % (MANUAL) 50 % (16-48); METAMYELOCYTES % 1 % (0-0); MONOCYTES % (MANUAL) 19 % (0-11.0); NEUTROPHILS % (MANUAL) 7 (42-76)
[2016-12-01] MEDS ORDERED: BLOOD SUGAR DIAGNOSTIC 1 EACH STRIP IN SCH (11:00)
[2016-12-01] MEDS ORDERED: PIPERACILLIN /TAZOBACTAM 2.25 G in IV D5W 50 ML IV SCH (12:00)
[2016-12-01] MEDS ORDERED: PIPERACILLIN /TAZOBACTAM 3.375 G in IV D5W 50 ML IV SCH (12:00)
[2016-12-03] MEDS ORDERED: LEVOFLOXACIN 500 MG /D5W 100ML 500 MG in PREMIX 1 EA IV SCH (09:00)
== END 2016-12-01 10:30 | disposition expired | DRG 720 ==
LOC: ER 22:28 → TELE 11-16 00:33 → TELE1 11-16 02:45 → TELE-TD 11-16 02:48 → ICU 11-16 03:20 → TELE 11-19 18:30 → MED 11-20 08:20 → TELE-TD 11-30 17:14 → ICUOV 11-30 17:28
PROVIDERS: ADMIT Internal Medicine; ATTEND Internal Medicine
PROC: 5A09357 Assistance with Respiratory Ventilation, Less than 24 Consecutive Hours, Continuous Positive Airway Pressure (ICD-10-PCS; principal; 2016-11-16)
PROC: 5A1945Z Respiratory Ventilation, 24-96 Consecutive Hours (ICD-10-PCS; principal; 2016-11-16)
PROC: 05H533Z Insertion of Infusion Device into Right Subclavian Vein, Percutaneous Approach (ICD-10-PCS; principal; 2016-11-16)
PROC: 0BH17EZ Insertion of Endotracheal Airway into Trachea, Via Natural or Artificial Opening (ICD-10-PCS; principal; 2016-11-16)
PROC: 30233N1 Transfusion of Nonautologous Red Blood Cells into Peripheral Vein, Percutaneous Approach (ICD-10-PCS; 2016-11-19)
PROC: 0DJ08ZZ Inspection of Upper Intestinal Tract, Via Natural or Artificial Opening Endoscopic (ICD-10-PCS; 2016-11-29)
PROC: 0DJ08ZZ Inspection of Upper Intestinal Tract, Via Natural or Artificial Opening Endoscopic (ICD-10-PCS; 2016-11-30)
PROC: 0BH18EZ Insertion of Endotracheal Airway into Trachea, Via Natural or Artificial Opening Endoscopic (ICD-10-PCS; 2016-12-01)
PROC: 5A1935Z Respiratory Ventilation, Less than 24 Consecutive Hours (ICD-10-PCS; 2016-12-01)
DX: A41.9 Sepsis, unspecified organism (principal); N17.0 Acute kidney failure with tubular necrosis; K76.7 Hepatorenal syndrome; R65.21 Severe sepsis with septic shock; G92 Toxic encephalopathy; J69.0 Pneumonitis due to inhalation of food and vomit; J96.01 Acute respiratory failure with hypoxia; J96.02 Acute respiratory failure with hypercapnia; E43 Unspecified severe protein-calorie malnutrition; I85.00 Esophageal varices without bleeding; K76.6 Portal hypertension; E87.4 Mixed disorder of acid-base balance; B36.9 Superficial mycosis, unspecified; D53.9 Nutritional anemia, unspecified; M10.9 Gout, unspecified; D61.818 Other pancytopenia; E11.22 Type 2 diabetes mellitus with diabetic chronic kidney disease; I13.0 Hypertensive heart and chronic kidney disease with heart failure and stage 1 through stage 4 chronic kidney disease, or unspecified chronic kidney disease; K72.90 Hepatic failure, unspecified without coma; K70.31 Alcoholic cirrhosis of liver with ascites; N18.9 Chronic kidney disease, unspecified; D50.9 Iron deficiency anemia, unspecified; E03.9 Hypothyroidism, unspecified; Z90.49 Acquired absence of other specified parts of digestive tract; D62 Acute posthemorrhagic anemia; D50.0 Iron deficiency anemia secondary to blood loss (chronic); K92.2 Gastrointestinal hemorrhage, unspecified; D69.59 Other secondary thrombocytopenia; D68.9 Coagulation defect, unspecified; E88.09 Other disorders of plasma-protein metabolism, not elsewhere classified; F10.27 Alcohol dependence with alcohol-induced persisting dementia; Z68.36 Body mass index [BMI] 36.0-36.9, adult; E87.5 Hyperkalemia; L89.90 Pressure ulcer of unspecified site, unspecified stage; R16.0 Hepatomegaly, not elsewhere classified; K31.9 Disease of stomach and duodenum, unspecified; K70.40 Alcoholic hepatic failure without coma; E66.3 Overweight; E83.42 Hypomagnesemia; I50.9 Heart failure, unspecified; R93.5 Abnormal findings on diagnostic imaging of other abdominal regions, including retroperitoneum; J32.0 Chronic maxillary sinusitis; N40.0 Benign prostatic hyperplasia without lower urinary tract symptoms; R13.10 Dysphagia, unspecified; T50.0X5A Adverse effect of mineralocorticoids and their antagonists, initial encounter; Y92.129 Unspecified place in nursing home as the place of occurrence of the external cause; G31.9 Degenerative disease of nervous system, unspecified; L98.8 Other specified disorders of the skin and subcutaneous tissue; K65.2 Spontaneous bacterial peritonitis
CPT/HCPCS: 31720; 36415; 36569; 36600; 70450-TC; 71010-TC; 76770-TC; 80048-TC; 80053-TC; 80076-TC; 80202-TC; 80305; 81000-TC; 82040-TC; 82105; 82140-TC; 82247-TC; 82248-TC; 82272-TC; 82378; 82746; 82803-TC; 82945-TC; 82962-TC; 83605-TC; 83735-TC; 83880; 84100-TC; 84439-TC; 84443-TC; 84484-TC; 84550-TC; 85025-TC; 85027-TC; 85610-TC; 85730-TC; 86850-TC; 86921-TC; 87040-TC; 87081-TC; 87086-TC; 87186-TC; 87400; 92611-TC; 92950-TC; 93307-TC; 94002-TC; 94003-TC; 94799-TC; 97001-TC; 97110-TC; 97116-TC; 97530-TC; A4216; A4217; A4606; A6248; A6253; A6402; A6403; C9113; G0480; J0171; J1815; J1940; J1956; J2060; J2270; J2354; J2370; J2543; J2704; J3370; J3420; J3430; J3475; J3490; J7030; J7042; J7050; J7060; J7070; P9016-BL; P9047; Z7610